=== PATIENT | female | born 1990 | race Caucasian/White ===

== ENCOUNTER 2017-05-29 16:27 | Emergency (ER) | payer MEDICAID ==
[~2017-05-29] VITALS: Ht 144.8 cm; Wt 86.2 kg
--- NOTE | 2017-05-29 17:21 | Urgent Treatment Center Report ---
History of Present Issue Date/Time Seen by Provider 05/29/17 1712 Visit Reason Pt arrived:Walked Presenting Problem:PT C/O DENTAL PAIN AND ADVISES SHE BROKE A TOOTH OFF THE OTHER NIGHT Location if Accident: Onset of symptoms date/time:/ or onset unknown for:MEDICAL HX UNKNOWN Have you (or family members/close friends) recently traveled outside the [place]? N If Yes, where/when: Have you had exposure to infectious disease within the past month? TB? Other? Specify: Patient states that she broke a tooth off of the left lower jaw yesterday. States that she has had pain and swelling in the gum area ever since and thinks it may be getting infected State that she noticed thet her gum area around the broken tooth looks red and swollen so she thought she better come in and get on antibiotics so her dentilst will be able to remove the tooth when she can get in ALLERGIES Coded Allergies: No Known Allergies (01/16/17) Home Medications Reported Medications PAROXETINE HCL (Paroxetine Hcl) 10 MG PO DAILY #30 History Medical History General CAD? No Angina: No CO: No Hypertension? No Hyperlipidemia? No CHF? No DVT? No PE? No COPD? No Asthma? Yes Anemia? No GERD? No Gastric ulcers? No GI Bleed? No Hernia? No Thyroid Problems? No Hypothyroidism? No CVA? No Seizures? No Diabetes? No Renal Insuffiency? No UTI? No Stones? No GB Disease: No Nephritic Syndrome? No Asplenia? No Hepatitis? No Sickle Cell Disease? No Arthritis? No Migraines? No Cataracts? No Glaucoma? No MRSA? No HIV? No TB? No Anxiety? Yes Depression? Yes Cancer? No More? No Immunization HX DT/Tetanus Unknown Flu Refused Pneumonia Never Had Surgical Hx Previous Surgery?Y FALLOPIAN TUBES REMOVED Family History Family HX Diabetes Yes CAD No Hypertension Yes Hyperlipidemia No Cancer Yes TB No Social History Smoking Hx Smoker: Never Smoker Tobacco: No Packs/day < 1 Pack Alcohol Alcohol: Yes Review of Systems All Other Systems Reviewed and Negative ENT mouth pain, dental caries, loose teeth, missing teeth. Comment Pain in left lower back tooth after breaking tooth yesterday and unable to get into the dentist because it is the weekend Physical Exam Vital Signs Vital Signs Date Time Temp Pulse Resp B/P Pulse O2 O2 Flow FiO2 Ox Delivery Rate 05/29 1633 98.1 112 16 112/87 98 General Appearance WD/WN, no apparent distress Ear, Nose, Throat dental caries, gingival disease, several broken teeth in left lower jaw area, swelling noted to gums and Patiet complaining of pain Respiratory Status Yes: trachea midline, chest symmetrical. No: respiratory distress. Lung Sounds bilateral: normal breath sounds, lungs clear. Cardiovascular regular rate/rhythm Neurologic alert, normal exam, oriented x 3 Medical Decision Making LABS/Meds/Orders Pt receiving controlled substance in ED? No Results/Orders Current Medication Orders Sig/Jericho Start time Last Medication Dose Route Stop Time Status Admin Ibuprofen 0 .STK-MED ONE 05/29 1720 DC PO Lidocaine HCl 0 .STK-MED ONE 05/29 1720 DC .ROUTE Ibuprofen 800 MG ONCE ONE 05/29 1715 DC PO 05/29 1716 Lidocaine HCl 15 ML ONCE ONE 05/29 1715 DC TP 05/29 171 Orders Procedure Date/time Status [facility] DENTAL BALL 05/29 1712 Active Departure Departure Time of Disposition 1716 Disposition DC Home or Self Care(routine) Clinical Impression Primary Impression: Pain, dental Condition STABLE Referrals Family dentist CAITLIN ELLER Patient Instructions DI for Dental Pain, DI for Tooth Decay, Tooth Abscess, Tooth Decay Additional Instructions Call dentist tomorrow and make appointment for dental work and removal of broken teeth, Take medication as prescribed and may need to eat soft food's/diet until seen by dentist to help with dental pain and no worsening of breakage of tooth Discharge Counseling Counseled pt/family regarding diagnosis, medications/RX, home care, follow up needs Prescriptions Current Visit Scripts Ibuprofen (Ibuprofen 800MG) 800 MG PO QIDP PRN pain #30 TAB Amoxicillin/Potassium Clav (Augmentin 875-125 Tablet) 1 EACH PO BID #14 TAB at 1721
[2017-05-29 17:23] VITALS: BP 112/87
--- OUTSIDE RECORDS SUMMARY | 2017-06-08 22:51 | External Medical Summary Rpt ---
Author Author BELLA Rock, BELLA Rock Organization [employer] Address Unknown Phone Unavailable
--- OUTSIDE RECORDS SUMMARY | 2017-06-08 22:51 | External Medical Summary Rpt | CCD ---
Demographics Preferred Language Bhutanese Marital Status Unknown Denominational Affiliation Unknown Race Unknown Ethnic Group Unknown Author Author , BELLA BLANCO Address Unknown Phone Immunization Unable to retrieve immunization data due to connection failure with Immunization Registry. Please try again later.
--- OUTSIDE RECORDS SUMMARY | 2017-06-08 22:51 | External Medical Summary Rpt | CCD ---
Author Author , BELLA Organization [employer] Address Unknown Phone [email or web address] Live Care Team Providers Care Chimney Repairer Name Role Phone YUSUF ALL, YUSUF ALL Unavailable Unavailable JORGE ASHTYN, JORGE Unavailable Unavailable ASHTYN [facility], Unavailable Unavailable [facility] Unavailable Unavailable [facility] VIRGINIE XAVIER, Unavailable Unavailable VIRGINIE XAVIER LOWE ZOILA, LOWE Unavailable Unavailable [facility], KRYSTAL Unavailable Unavailable [facility], [facility], Unavailable Unavailable [facility] WILMER MENDEZ, WILMER MENDEZ Unavailable Unavailable [facility] DANK DENNIS DWI, DANK Unavailable Unavailable JR DWI HART BLADIMIR, HART Unavailable Unavailable BLADIMIR MECCARIELLO TRA, Unavailable Unavailable MECCARIELLO [facility] Un[facility], Unavailable Unavailable [facility], [facility], Unavailable Unavailable [facility] Unavailable Unavailable EMERGENCY PHYS, [facility] Unavailable Unavailable EMERGENCY SERV, [facility] DHARA BERGER, Unavailable Unavailable DHARA HOGAN, ANITHA Unavailable Unavailable EDISON Purpose Continuity of Care Document - 03-11-2015 through 2016 Problems Code Diagnosis DOS Provider Status [id number] UNSPECIFIED 01-16-2017 [facility] WITH ACUTE INC EXACERBATIO N Z720 TOBACCO USE 01-16-2017 [facility] J209 ACUTE 07-11-2016 [facility], UNSPECIFIED PLLC R05 COUGH 07-11-2016 [facility] R0602 SHORTNESS 07-11-2016 [facility] R079 CHEST PAIN 07-11-2016 [facility]PEC[facility] R0989 OTH SPEC SX 07-11-2016 [facility] IN[facility]LV THE IMAGING ASS CIRC & RESP SYS J4521 MILD 05-31-2016 [facility], T ASTHMA PLLC WITH ACUTE EXACERBATIO N R918 OTHER 05-31-2016 [facility] NONSPECIFIC MEDICAL ABNORMAL [facility] ASS FINDING OF LUNG FIELD J0100 ACUTE 05-27-2016 [facility]ARY [facility], SINUSITIS PLLC UNSPECIFIED N739 FEMALE 04-07-2016 [facility] INFLAMMATOR Y DISEASE UNSPECIFIED Z302 ENCOUNTER 04-07-2016 [facility] STERILIZATI GROUP ON Z3009 ENCOUNTER 03-24-2016 [facility] GENERAL [facility] GROUP TAG MAKER&ADV ICE CONTRACEPT N390 URINARY 01-21-2016 [facility] INFECTION PHYS SITE NOT SPECIFIED R102 PELVIC AND 01-21-2016 [facility]Y PAIN PHYS Z975 PRESENCE OF 01-21-2016 [facility]TRAUT[facility]IN HOSPITA E CONTRACEPTI VE DEVICE D85300 UNSPECIFIED 12-09-2015 [facility] UNCOMPLICAT SERV ED R062 WHEEZING 12-09-2015 [facility] N926 IRREGULAR 07-28-2015 [facility] MENSTRU[facility]IO PHYSICIANS N GROUP UNSPECIFIED K72277 ENCOUNTER 07-28-2015 [facility] ROUTINE PHYSICIANS CHECKING IU GROUP CONTRACEPT DEVICE 43421 ABN FETL 04-12-2015 [facility] OF RATE/RHYTHM THE [facility] DELIV W/WO ANTPRTM COND 63342 ABNORM 04-12-2015 [facility] HEART [facility] RATE/RHYTHM ANTPRTM COND/COMP 61764 C/S DELIV 04-12-2015 [facility] W/O INDICAT PHYSICIANS DELIV W/WO GROUP ANTPRTM COND V270 OUTCOME OF 04-12-2015 [facility] DELIVERY PHYSICIANS SINGLE GROUP LIVEBORN V222 04-07-2015 [facility] STATE, PHYSICIANS INCIDENTAL GROUP 98839 THREATENED 04-06-2015 [facility] PREMATURE PHYSICIANS LABOR GROUP ANTEPARTUM V220 SUPERVISION 03-31-2015 [facility] V2881 ENCOUNTER 03-27-2015 [facility] SURVEY V221 SUPERVISION 03-19-2015 [facility] OF OTHER PHYSICIANS NORMAL GROUP V2889 OTHER 03-11-2015 [facility] SCREENING Allergies, Adverse Reactions, Alerts Clinical Alert Notifications Alert Asthma: history of ED visit in the last 365 days Asthma: no influenza vaccine in the last 365 days Asthma: non-ICS non-compliance with ED/hospitalization Asthma: non-ICS non-compliance with h/o of SA beta agonist Medications Na ND Rx Da Fi Fi Am Da Di Ph RX Ph St me C No te ll ll ou ys ag ar # ys at rm s nt no ma ic us Or Da si cy ia de te s n re d PA 13 09 10 30 30 00 CV Ac RO 10 -0 -0 .0 00 S ti XE 70 8- 6- 00 01 PH ve TI 15 20 20 38 AR NE 49 17 17 10 MA 0 49 CY HC L #0 10 23 32 MG TA BL ET PA 13 08 09 30 30 00 CV Ac RO 10 -1 -0 .0 00 S ti XE 70 1- 8- 00 01 PH ve TI 15 20 20 38 AR NE 49 17 17 10 MA 0 49 CY HC L #0 10 23 32 MG TA BL ET VE 00 08 09 18 18 00 HO Ac NT 17 -1 -0 .0 00 ME ti OL 30 4- 8- 00 06 TO ve IN 68 20 20 07 WN 22 17 17 63 HF 0 30 PH A AR 90 MA CY MC G OF IN LUND CY LE NT R HI AN A VE 00 07 08 18 30 00 CV Ac NT 17 -2 -1 .0 00 S ti OL 30 5- 8- 00 01 PH ve IN 68 20 20 37 AR 22 17 17 39 MA HF 0 60 CY A 90 #0 23 MC 32 G IN LUND LE R VE 00 05 06 18 30 00 HO Ac NT 17 -2 -1 .0 00 ME ti OL 30 2- 6- 00 06 TO ve IN 68 20 20 07 WN 22 17 17 53 HF 0 96 PH A AR 90 MA CY MC G OF IN LUND CY LE NT R HI AN A PA 68 05 06 30 30 00 HO Ac RO 38 -2 -1 .0 00 ME ti XE 20 2- 6- 00 06 TO ve TI 09 20 20 07 WN NE 70 17 17 54 6 58 PH HC AR L MA 10 CY MG OF TA CY BL NT ET HI AN A MO 00 05 06 30 30 00 CV Ac NT 09 -1 -0 .0 00 S ti EL 37 6- 9- 00 01 PH ve UK 42 20 20 34 AR 69 17 17 64 MA T 8 06 CY SO D #0 10 23 32 MG TA BL ET MO 00 04 05 30 30 00 CV Ac NT 09 -1 -1 .0 00 S ti EL 37 4- 2- 00 01 PH ve UK 42 20 20 33 AR 69 17 17 29 MA T 8 21 CY SO D #0 10 23 32 MG TA BL ET VE 00 04 04 18 30 00 HO Ac NT 17 -0 -2 .0 00 ME ti OL 30 5- 8- 00 06 TO ve IN 68 20 20 07 WN 22 17 17 53 HF 0 96 PH A AR 90 MA CY MC G OF IN LUND CY LE NT R HI AN A PA 68 04 04 30 30 00 HO Ac RO 38 -0 -2 .0 00 ME ti XE 20 5- 8- 00 06 TO ve TI 09 20 20 07 WN NE 70 17 17 54 6 58 PH HC AR L MA 10 CY MG OF TA CY BL NT ET HI AN A CE 00 04 04 30 30 00 HO Ac TI 37 -0 -2 .0 00 ME ti RI 83 5- 8- 00 06 TO ve ZI 63 20 20 07 WN NE 70 17 17 63 1 31 PH HC AR L MA 10 CY MG OF TA CY BL NT ET HI AN A PA 68 02 03 30 30 00 HO Ac RO 38 -0 -1 .0 00 ME ti XE 20 9- 0- 00 06 TO ve TI 09 20 20 07 WN NE 70 17 17 54 6 58 PH HC AR L MA 10 CY MG OF TA CY BL NT ET HI AN A MO 68 02 03 30 30 00 HO Ac NT 00 -0 -1 .0 00 ME ti EL 10 9- 0- 00 06 TO ve UK 24 20 20 07 WN 80 17 17 63 T 3 29 PH SO AR D MA 10 CY MG OF TA CY BL NT ET HI AN A CE 00 02 03 30 30 00 HO Ac TI 37 -0 -1 .0 00 ME ti RI 83 9- 0- 00 06 TO ve ZI 63 20 20 07 WN NE 70 17 17 63 1 31 PH HC AR L MA 10 CY MG OF TA CY BL NT ET HI AN A VE 00 02 03 18 30 00 HO Ac NT 17 -0 -1 .0 00 ME ti OL 30 9- 0- 00 06 TO ve IN 68 20 20 07 WN 22 17 17 53 HF 0 96 PH A AR 90 MA CY MC G OF IN LUND CY LE NT R HI AN A PA 68 01 02 30 30 00 HO Ac RO 38 -0 -0 .0 00 ME ti XE 20 5- 3- 00 06 TO ve TI 09 20 20 07 WN NE 70 17 17 54 6 58 PH HC AR L MA 10 CY MG OF TA CY BL NT ET HI AN A MO 68 01 02 30 30 00 HO Ac NT 00 -0 -0 .0 00 ME ti EL 10 5- 3- 00 06 TO ve UK 24 20 20 07 WN 80 17 17 63 T 3 29 PH SO AR D MA 10 CY MG OF TA CY BL NT ET HI AN A VE 00 01 02 18 30 00 HO Ac NT 17 -0 -0 .0 00 ME ti OL 30 5- 3- 00 06 TO ve IN 68 20 20 07 WN 22 17 17 53 HF 0 96 PH A AR 90 MA CY MC G OF IN LUND CY LE NT R HI AN A QU 60 12 01 60 30 00 HO Ac ET 50 -1 -1 .0 00 ME ti IA 53 3- 3- 00 06 TO ve PI 13 20 20 07 WN NE 00 16 17 74 1 80 PH FU AR MA MA RA CY TE OF 25 CY MG NT HI TA AN B A Procedures Procedure DOS Code Location Performer Comment PRESSURIZ 99982 [facility] ED/NONPRE 7 [facility] SSURIZED INC INC INHALATIO N TREATMENT NONINVASI 12306 [facility] VE 7 [facility] EAR/PULSE INC INC OXIMETRY SINGLE DETER UNCLASSIF J3490 [facility] IED DRUGS 7 [facility] INC INC THERAPEUT 91990 [facility] IC 7 [facility] PROPHYLAC INC INC TIC/DX INJECTION SUBQ/IM ECG 36035 [facility] WEEMS JR ROUTINE 6 [facility] W/LEAST P 12 LDS I&R ONLY RADIOLOGI 73319 [facility] C EXAM 6 MEDICAL XAVIER CHEST 2 IMAGING VIEWS ASS FRONTAL&L ATERAL RADIOLOGI 09107 [facility] C EXAM 6 MEDICAL CHEST 2 IMAGING VIEWS ASS FRONTAL&L ATERAL PRESSURIZ 02746 [facility] ED/NONPRE 6 [facility] SSURIZED INC INC INHALATIO N TREATMENT RADIOLOGI 86999 [facility] ALL C EXAM 6 MEDICAL CHEST 2 IMAGING VIEWS ASS FRONTAL&L ATERAL BLOOD 73024 [facility] R[facility] COUNT 6 [facility] COMPLETE INC INC AUTO&AUTO DIFRNTL WBC PRESSURIZ 22389 [facility] R[facility] ED/NONPRE 6 [facility] SSURIZED INC INC INHALATIO N TREATMENT ANESTHESI 24793 [facility] DHARA A 6 ANESTH SHE INTRAPERI OF THE TONEAL BLUE LOWER ABD W/LAPS NOS LAPAROSCO 90698 [facility] RICE PY W/RMVL 6 [facility] ADNEXAL [place] [address] [facility] SURG 6 [facility] GROSS&ELIZABETH ROSCOPIC EXAM BASIC 48299 [facility] RICE METABOLIC 6 [facility] PANEL INC INC CALCIUM TOTAL URINE 70290 [facility] RICE 6 [facility] TEST INC INC VISUAL COLOR CMPRSN METHS URINE 26473 [facility] 6 N N TEST COMMUNTIY COMMUNTIY VISUAL HOSPITA HOSPITA COLOR CMPRSN METHS CULTURE 31202 [facility] BACTERIAL 6 N N COMMUNTIY COMMUNTIY QUANTTATI HOSPITA HOSPITA VE COLONY COUNT URINE URNLS DIP 10203 [facility] 6 N N STICK/TAB COMMUNTIY COMMUNTIY LET HOSPITA HOSPITA REAGENT AUTO MICROSCOP Y RADIOLOGI 41959 [facility] C EXAM 6 N N CHEST 2 COMMUNTIY COMMUNTIY VIEWS HOSPITA HOSPITA FRONTAL&L ATERAL ANES 16310 [facility] ANITHA CESARN 5 ANESTH EDISON DLVR FLWG OF THE BLUE NEURAXIAL LABOR ANALG/ANE S 19510 [facility] DELIVERY 5 PHYSICIAN PHYSICIAN ONLY S GROUP S GROUP W/POSTPAR CORY CARE LOW 741 [facility] RICE CERVICAL 5 [facility] INC INC SECTION NEURAXIAL 29969 [facility] ANITHA LABOR 5 ANESTH EDISON ANALG/ANE OF THE S PLND BLUE VAGINAL DELIVERY 21273 [facility] NONSTRESS 5 PHYSICIAN ASHTYN TEST S GROUP PARTICLE 96329 [facility] RICE AGGLUTINA 5 [facility] TION INC INC SCREEN EACH ANTIBODY US PREG 94322 [facility] YUSUF ALL UTERUS 5 MEDICAL REAL TIME IMAGING F/U ASS TRNSABDL PER FETUS US PREG 29731 [facility] K[facility]STAL UTERUS 5 [facility] W/DETAIL INC INC RAMÓN 1ST GESTATION US PREG 73940 SOLO VIRGINIE UTERUS 5 MEDICAL XAVIER AFTER 1ST IMAGING TRIMEST ASS / GESTATION US PREG 67658 SOLO VIRGINIE UTERUS 5 MEDICAL XAVIER REAL TIME IMAGING W/IMAGE ASS DCMTN TRANSVAG DOPPLER 45957 [facility] HICKMANON VELOCIMET 5 [facility] RY INC INC UMBILICAL ARTERY Encounters Encounter Start End Date Code Location Performer Type Date EMERGENCY 44159 [facility] 7 7 [facility] T VISIT LOW/MODER SEVERITY HOSPITAL [facility] - 7 7 [facility] EMERGENCY 79133 CH[facility] SINGER DEPT 6 6 PHYSICIAN U [facility] VISIT [facility] HIGH SEVERITY& THREAT FUNJ EMERGENCY 31658 [facility] 6 [facility] T VISIT LOW/MODER SEVERITY EMERGENCY 92491 [facility] MENDEZ 6 6 [facility] MODERATE SEVERITY HOSPITAL [facility] - 6 6 [facility] 18070 [facility] SINGER 6 6 PHYSICIAN U [facility] T VISIT MODERATE SEVERITY HOSPITAL [facility] - 6 6 [facility] T OFFICE 59537 [facility] 6 6 PHYSICIAN ASHTYN T VISIT S GROUP 15 MINUTES EMERGENCY 34011 [facility] 6 6 [facility] LOW/MODER SEVERITY HOSPITAL ZIYAD - 6 6 N OUTPATIEN COMMUNTIY T HOSPITA EMERGENCY 55013 [facility] KRYSTAL 6 6 [facility]OGER DEPARTMEN EMERGENCY T VISIT PHYS MODERATE SEVERITY EMERGENCY 57081 [facility] 6 ROGER LO TRA DEPARTMEN EMERGENCY T VISIT SERV HIGH/URGE NT SEVERITY [facility] - 6 6 N OUTPATIEN COMMUNTIY T HOSPITA OFFICE 71487 [facility] JORGE OUTPATIEN 5 5 PHYSICIAN ASHTYN T VISIT S GROUP 15 MINUTES HOSPITAL [facility]AL - 5 5 [facility] INPATIENT INC OFFICE 75198 [facility] OUTPATIEN 5 5 PHYSICIAN ZOILA T VISIT S GROUP 15 MINUTES OFFICE 47490 [facility] OUT[facility] 5 5 PHYSICIAN T VISIT S GROUP 15 MINUTES HOSPITAL [facility] - 5 5 [facility] OUTPATIEN INC T HOSPITAL [facility] - 5 5 [facility] OUTPATIEN INC T OFFICE 21988 [facility] OUTPATIEN 5 5 PHYSICIAN ZOILA T VISIT S GROUP 15 MINUTES HOSPITAL [facility] - 5 5 [facility] OUTPATIEN INC T
--- OUTSIDE RECORDS SUMMARY | 2017-06-08 22:51 | External Medical Summary Rpt | CCD ---
Author Author , BELLA Organization BELLA Address Unknown Phone [email or web address] Care Team Providers Care Limb Driver Name Role Phone YUSUF ALL, YUSUF ALL Unavailable Unavailable JORGE ASHTYN, JORGE Unavailable Unavailable ASHTYN [facility], Unavailable Unavailable [facility] Un[facility] Unavailable [facility] VIRGINIE XAVIER, Unavailable Unavailable VIRGINIE XAVIER LOWE ZOILA, LOWE Unavailable Unavailable ZOILA [facility] Un[facility]available [facility], [facility], KRYSTAL Unavailable Unavailable [facility], [facility], Unavailable Unavailable [facility] WILMER MENDEZ, WILMER MENDEZ Unavailable Unavailable [facility], [facility] DANK DENNIS DWI, DANK Unavailable Unavailable JR DWI HART BLADIMIR, HART Unavailable Unavailable BLADIMIR [facility], Unavailable Unavailable [facility], [facility], Unavailable Unavailable [facility] Unavailable Un[facility] DHARA BERGER, Unavailable Unavailable DHARA HOGAN, ANITHA Unavailable Unavailable [facility] Purpose Continuity of Care Document - 03-11-2015 through 2016 Problems Code Diagnosis DOS Provider Status [id number] UNSPECIFIED 01-16-2017 [facility] WITH ACUTE INC EXACERBATIO N Z720 TOBACCO USE 01-16-2017 [facility] J209 ACUTE 07-11-2016 [facility] UNSPECIFIED PLLC R05 COUGH 07-11-2016 [facility] R0602 SHORTNESS 07-11-2016 [facility] R079 CHEST PAIN 07-11-2016 [facility]PEC[facility] R0989 OTH SPEC SX 07-11-2016 [facility] THE [facility]ING [facility] CIRC & RESP SYS J4521 MILD 05-31-2016 [facility], T [facility]C WITH ACUTE EXACERBATIO N R918 OTHER 05-31-2016 [facility] NONSPECIFIC MEDICAL ABNORMAL [facility]ING ASS FINDING OF LUNG FIELD J0100 ACUTE 05-27-2016 [facility]ARY [facility], SINUSITIS PLLC UNSPECIFIED N739 FEMALE 04-07-2016 [facility] INFLAMMATOR Y DISEASE UNSPECIFIED Z302 ENCOUNTER 04-07-2016 [facility] STERILIZATI GROUP ON Z3009 ENCOUNTER 03-24-2016 [facility] OT GENERAL PHYSICIANS GROUP CLAY PRODUCTS GLAZER&ADV ICE CONTRACEPT N390 URINARY 01-21-2016 [facility] INFECTION PHYS SITE NOT SPECIFIED R102 [facility] AND 01-21-2016 [facility] PER[facility]ERG[facility]Y PAIN PHYS Z975 PRESENCE OF 01-21-2016 [facility] E CONTRACEPTI VE DEVICE Y42243 UNSPECIFIED 12-09-2015 [facility] UNCOMPLICAT SERV ED R062 WHEEZING 12-09-2015 [facility] N926 IRREGULAR 07-28-2015 [facility] MENSTRUATIO PHYSICIANS N GROUP UNSPECIFIED C96397 ENCOUNTER 07-28-2015 [facility] ROUTINE PHYSICIANS CHECKING IU GROUP CONTRACEPT DEVICE 13407 ABN FETL 04-12-2015 [facility] ANESTH OF RATE/RHYTHM THE BLUE DELIV W/WO ANTPRTM COND 44337 ABNORM 04-12-2015 [facility] HEART PHYSICIANS GROUP RATE/RHYTHM ANTPRTM COND/COMP 02259 C/S DELIV 04-12-2015 [facility] W/O INDICAT PHYSICIANS DELIV W/WO GROUP ANTPRTM COND V270 OUTCOME OF 04-12-2015 [facility] DELIVERY PHYSICIANS SINGLE GROUP LIVEBORN V222 04-07-2015 [facility] STATE, PHYSICIANS INCIDENTAL GROUP 78483 THREATENED 04-06-2015 [facility] PREMATURE PHYSICIANS LABOR GROUP ANTEPARTUM V220 SUPERVISION 03-31-2015 [facility] INC V2881 ENCOUNTER 03-27-2015 [facility] SURVEY V221 SUPERVISION 03-19-2015 [facility] OF OTHER PHYSICIANS NORMAL GROUP V2889 OTHER 03-11-2015 [facility] SCREENING Allergies, Adverse [...] Procedure DOS Code Location Performer Comment PRESSURIZ 91167 [facility] ED/NONPRE 7 [facility] SSURIZED INC INC INHALATIO N TREATMENT NONINVASI 21188 [facility] VE 7 [facility] EAR/PULSE INC INC OXIMETRY SINGLE DETER UNCLASSIF J3490 [facility] IED DRUGS 7 [facility] INC INC THERAPEUT 42296 [facility] IC 7 [facility] PROPHYLAC INC INC TIC/DX INJECTION SUBQ/IM ECG 58686 [facility] WEEMS JR ROUTINE 6 [facility] W/LEAST P 12 LDS I&R ONLY RADIOLOGI 21810 [facility] C EXAM 6 MEDICAL XAVIER CHEST 2 IMAGING VIEWS ASS FRONTAL&L ATERAL RADIOLOGI 29377 [facility] YUSUF ALL C EXAM 6 MEDICAL CHEST 2 IMAGING VIEWS ASS FRONTAL&L ATERAL PRESSURIZ 77550 [facility] R[facility] ED/NONPRE 6 [facility] SSURIZED INC INC INHALATIO N TREATMENT RADIOLOGI 39701 [facility] C EXAM 6 MEDICAL CHEST 2 IMAGING VIEWS ASS FRONTAL&L ATERAL BLOOD 14578 [facility] R[facility] COUNT 6 [facility] COMPLETE INC INC AUTO&AUTO DIFRNTL WBC PRESSURIZ 28447 [facility] R[facility] ED/NONPRE 6 [facility] SSURIZED INC INC INHALATIO N TREATMENT ANESTHESI 51284 [facility] DHARA A 6 ANESTH SHE INTRAPERI OF THE TONEAL BLUE LOWER ABD W/LAPS NOS LAPAROSCO 79623 [facility] RICE PY W/RMVL 6 [facility] [place]EX[place] [address] [facility]ART SURG 6 [facility] PATHOLOGY GROSS&ELIZABETH ROSCOPIC EXAM BASIC 76808 [facility] RICE METABOLIC 6 [facility] PANEL INC INC CALCIUM TOTAL URINE 22519 [facility] RICE 6 [facility] TEST INC INC VISUAL COLOR CMPRSN METHS URINE 65985 [facility] 6 N N TEST COMMUNTIY COMMUNTIY VISUAL HOSPITA HOSPITA COLOR CMPRSN METHS CULTURE 80512 [facility] BACTERIAL 6 N N COMMUNTIY COMMUNTIY QUANTTATI HOSPITA HOSPITA VE COLONY COUNT URINE URNLS DIP 32349 [facility] 6 N N STICK/TAB COMMUNTIY COMMUNTIY LET HOSPITA HOSPITA REAGENT AUTO MICROSCOP Y RADIOLOGI 42636 [facility] C EXAM 6 N N CHEST 2 COMMUNTIY COMMUNTIY VIEWS HOSPITA HOSPITA FRONTAL&L ATERAL ANES 15255 [facility] ANITHA CESARN 5 ANESTH EDISON DLVR FLWG OF THE BLUE NEURAXIAL LABOR ANALG/ANE S 67183 [facility] DELIVERY 5 PHYSICIAN PHYSICIAN ONLY S GROUP S GROUP W/POSTPAR CORY CARE LOW 741 [facility] RICE CERVICAL 5 [facility] INC INC SECTION NEURAXIAL 51791 [facility] ANITHA LABOR 5 ANESTH EDISON ANALG/ANE OF THE S PLND BLUE VAGINAL DELIVERY 65224 [facility] NONSTRESS 5 PHYSICIAN ASHTYN TEST S GROUP PARTICLE 73613 [facility] RICE AGGLUTINA 5 [facility] TION INC INC SCREEN EACH ANTIBODY US PREG 26260 [facility] YUSUF ALL UTERUS 5 MEDICAL REAL TIME IMAGING F/U ASS TRNSABDL PER FETUS US PREG 99185 [facility] K[facility]STAL UTERUS 5 [facility] W/DETAIL INC INC RAMÓN 1ST GESTATION US PREG 47261 SOLO VIRGINIE UTERUS 5 MEDICAL XAVIER AFTER 1ST IMAGING TRIMEST ASS / GESTATION US PREG 23825 SOLO VIRGINIE UTERUS 5 MEDICAL XAVIER REAL TIME IMAGING W/IMAGE ASS DCMTN TRANSVAG DOPPLER 66622 [facility] HICKMANON VELOCIMET 5 [facility] RY INC INC UMBILICAL ARTERY Encounters Encounter Start End Date Code Location Performer Type Date EMERGENCY 63523 [facility] 7 7 [facility] T VISIT LOW/MODER SEVERITY HOSPITAL [facility] - 7 7 [facility] 48506 [facility] SINGER DEPT 6 6 PHYSICIAN U [facility] HIGH SEVERITY& THREAT FUNJ EMERGENCY 27112 [facility] T VISIT LOW/MODER SEVERITY EMERGENCY 96211 [facility] MENDEZ 6 6 [facility] VISIT MODERATE [facility]VERITY HOSPITAL [facility] - 6 6 [facility] 45207 CHRISTAL SINGER 6 6 PHYSICIAN U [facility] T VISIT MODERATE SEVERITY HOSPITAL KRYSTAL - 6 6 [facility] T OFFICE 83773 [facility] 6 6 PHYSICIAN ASHTYN T VISIT S GROUP 15 MINUTES EMERGENCY 97420 [facility] 6 [facility] LOW/MODER SEVERITY HOSPITAL ZIYAD - 6 6 N OUTPATIEN COMMUNTIY T HOSPITA EMERGENCY 35787 [facility] KRYSTAL 6 6 [facility]OGER DEPARTMEN EMERGENCY T VISIT PHYS MODERATE SEVERITY EMERGENCY 93394 [facility] 6 [facility] DEPARTMEN EMERGENCY T VISIT SERV HIGH/URGE NT SEVERITY HOSPITAL [facility] - 6 6 N OUTPATIEN COMMUNTIY T HOSPITA OFFICE 58384 [facility] JORGE OUTPATIEN 5 5 PHYSICIAN ASHTYN T VISIT S GROUP 15 MINUTES HOSPITAL [facility] - 5 5 [facility] INPATIENT INC OFFICE 93519 [facility] OUTPATIEN 5 5 PHYSICIAN ZOILA T VISIT S GROUP 15 MINUTES OFFICE 26225 [facility] OUTPATIEN 5 5 PHYSICIAN T VISIT S GROUP 15 MINUTES HOSPITAL [facility] - 5 5 [facility] OUTPATIEN INC T HOSPITAL [facility] - 5 5 [facility] OUTPATIEN INC T OFFICE 42244 [facility] OUTPATIEN 5 5 PHYSICIAN ZOILA T VISIT S GROUP 15 MINUTES HOSPITAL [facility] - 5 5 [facility] OUTPATIEN INC T
--- OUTSIDE RECORDS SUMMARY | 2017-06-08 22:51 | External Medical Summary Rpt | CCD ---
Demographics Preferred Language Ukrainian Marital Status Unknown [employer] Affiliation Unknown Race Unknown Ethnic Group Unknown Author Author , BELLA BLANCO Address Unknown Phone Immunization Unable to retrieve immunization data due to connection failure with Immunization Registry. Please try again later.
== END 2017-05-29 17:24 | disposition home or self-care (01) ==
LOC: UTC 16:27
DX: K02.9 Dental caries, unspecified (principal); J45.909 Unspecified asthma, uncomplicated; F41.8 Other specified anxiety disorders; F10.10 Alcohol abuse, uncomplicated; K05.01 Acute gingivitis, non-plaque induced